=== PATIENT | male | born 1960 | race Caucasian/White ===

== ENCOUNTER 2020-03-07 16:47 | Observation (INO) ==
[2020-03-07 17:54] LABS: Bilirubin,Urine Negative (Negative); Blood,Urine Negative (Negative); Clarity,Urine Clear (Clear); Color,Urine Colorless (Yellow); Glucose,Urine (UA) >=1000 mg/dL (Normal); Ketones,Urine Negative (Negative); Leukocyte Esterase,Urine Negative (Negative); Nitrite,Urine Negative (Negative); Protein,Urine Negative (Neg-Trace); RBC,Urine 0-3 per hpf (0-3); Specific Gravity,Urine 1.027 (1.010-1.025); Squamous Epithelial Cell,Urine Few per hpf (None-Few); Urobilinogen,Urine Normal (Normal); WBC,Urine 0-3 per hpf (0-3)
[2020-03-07] MEDS ORDERED: Isovue-370 500 ML BOTTLE IVP ONE (17:55)
[2020-03-07 17:57] LABS: Basophils # 0.1 K/mcL (0.0-0.2); Basophils % 0.6 %; Eosinophils # 0.1 K/mcL (0.0-0.6); Hematocrit 47.8 % (37.5-50.1); Hemoglobin 15.6 g/dL (12.9-16.9); Immature Granulocytes % 0.1 % (0-4); Lymphocytes # 2.4 K/mcL (0.6-4.6); Lymphocytes % 31.1 %; Mean Corpuscular HGB Conc 32.6 g/dL (31.6-35.5); Mean Corpuscular Volume 91.9 fL (83.0-100.0); Monocytes # 0.5 K/mcL (0.0-1.3); Monocytes % 6.7 %; Neutrophils # 4.7 K/mcL (1.6-8.9); Platelet Count 212 K/mcL (140-400); Red Cell Distribution Width 13.6 % (11.5-14.5); Segmented Neutrophils % 60.5 %; White Blood Count 7.8 K/mcL (4.3-11.1)
[2020-03-07 18:09] LABS: BUN/Creatinine Ratio 20 (6-26); Blood Urea Nitrogen 17 mg/dL (8-23); Calcium 8.8 mg/dL (8.6-10.3); Carbon Dioxide 28 mEq/L (23-29); Chloride 101 mEq/L (98-107); Glucose 178 mg/dL (70-105); Osmolality,Calculated 288 (280-300); Potassium 3.8 mEq/L (3.5-5.1); Sodium 136 mEq/L (136-145); eGFR For African Americans > 60 (> 60); eGFR For Non-African Americans > 60 (> 60)
[2020-03-07 18:49] LABS: Troponin I < 0.03 ng/mL (< 0.04)
[2020-03-07] MEDS ORDERED: Acetaminophen 325 MG TABLET PO PRN (20:42)
[2020-03-07] MEDS ORDERED: Naloxone 0.4 MG/ML INJ IVP PRN (20:42)
[2020-03-07] MEDS ORDERED: Ondansetron 4 MG/2 ML VIAL IVP PRN (20:42)
[2020-03-07] MEDS ORDERED: Ringers Solution, Lactated 1,000 ML IVC SCH (20:45)
[2020-03-07] MEDS: Sucralfate 1 GM TABLET PO SCH (21:36)
[2020-03-07] MEDS: Ranolazine 500 MG TAB.ER.12H PO SCH (21:36)
[2020-03-08] MEDS ORDERED: *HR* Enoxaparin 40 MG/0.4 ML SYRINGE SQ SCH (06:00)
[2020-03-08 06:14] LABS: Prothrombin Time 11.6 Seconds (9.4-12.1)
[2020-03-08 06:16] LABS: Basophils # 0.1 K/mcL (0.0-0.2); Basophils % 0.9 %; Eosinophils # 0.2 K/mcL (0.0-0.6); Eosinophils % 2.3 %; Hematocrit 48.2 % (37.5-50.1); Hemoglobin 14.8 g/dL (12.9-16.9); Immature Granulocytes % 0.1 % (0-4); Lymphocytes # 3.1 K/mcL (0.6-4.6); Lymphocytes % 44.4 %; Mean Corpuscular HGB Conc 30.7 g/dL (31.6-35.5); Mean Corpuscular Hemoglobin 28.5 pg (28.0-33.3); Mean Corpuscular Volume 92.9 fL (83.0-100.0); Monocytes # 0.6 K/mcL (0.0-1.3); Platelet Count 208 K/mcL (140-400); Red Blood Count 5.19 M/mcL (4.19-5.50); Red Cell Distribution Width 13.8 % (11.5-14.5); Segmented Neutrophils % 43.3 %
[2020-03-08 06:41] LABS: Troponin I < 0.03 ng/mL (< 0.04)
[2020-03-08 07:37] LABS: Alanine Aminotransferase 15 Units/L (7-52); Albumin 3.7 g/dL (3.5-5.7); Albumin/Globulin Ratio 1.5 (1.1-2.2); Alkaline Phosphatase 54 Units/L (34-104); Aspartate Amino Transferase 13 Units/L (13-39); BUN/Creatinine Ratio 19 (6-26); Bilirubin,Total 0.4 mg/dL (0.3-1.0); Blood Urea Nitrogen 18 mg/dL (8-23); Calcium 8.5 mg/dL (8.6-10.3); Carbon Dioxide 31 mEq/L (23-29); Chloride 102 mEq/L (98-107); Globulin 2.5 g/dL (2.4-3.5); Glucose 109 mg/dL (70-105); Magnesium 2.3 mg/dL (1.6-2.6); Osmolality,Calculated 284 (280-300); Potassium 4.4 mEq/L (3.5-5.1); Sodium 136 mEq/L (136-145); Total Protein 6.2 g/dL (6.4-8.9); eGFR For African Americans > 60 (> 60); eGFR For Non-African Americans > 60 (> 60)
[2020-03-08] MEDS: Sucralfate 1 GM TABLET PO SCH ×2 (08:21→13:03)
[2020-03-08] MEDS: Ranolazine 500 MG TAB.ER.12H PO SCH (08:21)
[2020-03-08] MEDS ORDERED: Venlafaxine XR (24 HR) 37.5 MG CAP.ER.24H PO SCH (09:00)
[2020-03-08] MEDS ORDERED: *HR* LORazepam 1 MG TABLET PO SCH (09:00)
[2020-03-08] MEDS ORDERED: Aspirin Enteric Coated 81 MG Tablet PO SCH (09:00)
[2020-03-08] MEDS ORDERED: cephALEXin 500 MG CAPSULE PO SCH (09:45)
[2020-03-08 10:17] VITALS: BP 118/77
== END 2020-03-08 16:14 | disposition home or self-care (01) ==
LOC: EMEROOARM 16:47 → 3BNU 16:47 → SUATTDRO 19:51 → 3BNU 20:54
PROVIDERS: ADMIT Family Medicine; ATTEND Internal Medicine

== ENCOUNTER 2020-05-03 12:49 | Observation (INO) ==
[2020-05-03] MEDS ORDERED: Aspirin 81 MG TAB.CHEW PO ONE ×2 (12:58→13:15)
[2020-05-03] MEDS ORDERED: Aspirin 325 MG TABLET PO ONE (13:11)
[2020-05-03 13:23] LABS: Basophils # 0.1 K/mcL (0.0-0.2); Basophils % 0.8 %; Eosinophils # 0.1 K/mcL (0.0-0.6); Eosinophils % 1.7 %; Hematocrit 48.1 % (37.5-50.1); Immature Granulocytes % 0.3 % (0-4); Lymphocytes # 2.1 K/mcL (0.6-4.6); Lymphocytes % 35.6 %; Mean Corpuscular HGB Conc 31.2 g/dL (31.6-35.5); Mean Corpuscular Hemoglobin 28.9 pg (28.0-33.3); Mean Corpuscular Volume 92.7 fL (83.0-100.0); Mean Platelet Volume 10.3 fL (9.4-12.4); Monocytes # 0.5 K/mcL (0.0-1.3); Neutrophils # 3.2 K/mcL (1.6-8.9); Platelet Count 209 K/mcL (140-400); Red Blood Count 5.19 M/mcL (4.19-5.50); Red Cell Distribution Width 14.2 % (11.5-14.5); Segmented Neutrophils % 53.6 %
[2020-05-03] MEDS ORDERED: Nitroglycerin 0.4 MG TAB.SUBL SL PRN (13:30)
[2020-05-03 13:35] LABS: Prothrombin Time 11.4 Seconds (9.4-12.1)
[2020-05-03 13:38] LABS: Activated Partial Thrombo Time 29.5 Seconds (26.0-36.0)
[2020-05-03 14:10] LABS: BUN/Creatinine Ratio 15 (6-26); Blood Urea Nitrogen 15 mg/dL (8-23); Carbon Dioxide 25 mEq/L (23-29); Chloride 104 mEq/L (98-107); Glucose 238 mg/dL (70-105); Osmolality,Calculated 295 (280-300); Sodium 138 mEq/L (136-145); Troponin I < 0.03 ng/mL (< 0.04); eGFR For African Americans > 60 (> 60); eGFR For Non-African Americans > 60 (> 60)
[2020-05-03] MEDS ORDERED: Naloxone 0.4 MG/ML INJ IVP PRN (14:46)
[2020-05-03] MEDS ORDERED: D5% in Water 1,000 ML IVC PRN (16:05)
[2020-05-03] MEDS ORDERED: Dextrose Gel 15 GM/37.5 ML TUBE PO PRN ×2 (16:05)
[2020-05-03] MEDS ORDERED: *HR* Dextrose 50 % in Water (Vial) 50 ML VIAL IVP PRN (16:05)
[2020-05-03] MEDS: Sucralfate 1 GM TABLET PO SCH ×2 (18:03→21:30)
[2020-05-03] MEDS: Insulin LISPRO 300 UNITS/3 ML VIAL SUBQ SCH (18:07)
[2020-05-03] MEDS ORDERED: *HR* Promethazine 25 MG/ML VIAL IM ONE (19:19)
[2020-05-03] MEDS: Ranolazine 500 MG TAB.ER.12H PO SCH (19:57)
[2020-05-03] MEDS ORDERED: Insulin LISPRO 300 UNITS/3 ML VIAL SUBQ SCH (21:00)
[2020-05-03] MEDS ORDERED: GI Cocktail 40 ML EACH PO ONE (22:06)
[2020-05-03] MEDS ORDERED: Simethicone 80 MG TAB.CHEW PO PRN (22:06)
[2020-05-03] MEDS ORDERED: Sennosides/Docusate Sodium TABLET PO PRN (22:06)
[2020-05-04 02:42] LABS: BUN/Creatinine Ratio 20 (6-26); Basophils # 0.1 K/mcL (0.0-0.2); Basophils % 0.5 %; Blood Urea Nitrogen 15 mg/dL (8-23); Calcium 8.9 mg/dL (8.6-10.3); Carbon Dioxide 27 mEq/L (23-29); Chloride 103 mEq/L (98-107); Chol/HDL Ratio 4.8 (0-4.9); Cholesterol 168 mg/dL (< 200); Eosinophils # 0.2 K/mcL (0.0-0.6); Eosinophils % 1.7 %; Glucose 94 mg/dL (70-105); HDL Cholesterol 35 mg/dL (40-59); Hematocrit 48.6 % (37.5-50.1); Hemoglobin 15.6 g/dL (12.9-16.9); Immature Granulocytes % 0.3 % (0-4); LDL Cholesterol,Calculated 106 mg/dL (< 100); Lymphocytes # 3.2 K/mcL (0.6-4.6); Lymphocytes % 33.7 %; Mean Corpuscular HGB Conc 32.1 g/dL (31.6-35.5); Mean Corpuscular Hemoglobin 29.8 pg (28.0-33.3); Mean Corpuscular Volume 92.9 fL (83.0-100.0); Mean Platelet Volume 10.6 fL (9.4-12.4); Monocytes # 0.7 K/mcL (0.0-1.3); Monocytes % 6.9 %; Neutrophils # 5.4 K/mcL (1.6-8.9); Osmolality,Calculated 285 (280-300); Platelet Count 205 K/mcL (140-400); Potassium 3.7 mEq/L (3.5-5.1); Red Blood Count 5.23 M/mcL (4.19-5.50); Red Cell Distribution Width 13.9 % (11.5-14.5); Segmented Neutrophils % 56.9 %; Sodium 137 mEq/L (136-145); Triglycerides 135 mg/dL (< 150); eGFR For African Americans > 60 (> 60); eGFR For Non-African Americans > 60 (> 60)
[2020-05-04 02:45] LABS: White Blood Count 9.4 K/mcL (4.3-11.1)
[2020-05-04 03:16] LABS: Estimated Average Glucose 255 mg/dl; Hemoglobin A1C 10.5 %
[2020-05-04 06:16] VITALS: BP 103/64
[2020-05-04] MEDS: Insulin LISPRO 300 UNITS/3 ML VIAL SUBQ SCH ×2 (07:43→12:25)
[2020-05-04] MEDS: Ranolazine 500 MG TAB.ER.12H PO SCH (07:58)
[2020-05-04] MEDS: Sucralfate 1 GM TABLET PO SCH ×2 (07:58→12:28)
[2020-05-04] MEDS ORDERED: Regadenoson 0.4 MG/5 ML SYRINGE IVP ONE (08:35)
[2020-05-04] MEDS ORDERED: Venlafaxine XR (24 HR) 75 MG CAP.ER.24H PO SCH (09:00)
[2020-05-04] MEDS ORDERED: Aspirin Enteric Coated 81 MG Tablet PO SCH (09:00)
[2020-05-04] MEDS ORDERED: *HR* LORazepam 1 MG TABLET PO SCH (09:00)
[2020-05-04] MEDS ORDERED: Metoprolol XL (24 HR) Succ 25 MG TAB.ER.24H PO SCH (09:00)
[2020-05-04] MEDS ORDERED: Isosorbide MONOnitrate (24 HR) 30 MG TAB.ER.24H PO SCH (14:15)
== END 2020-05-04 16:18 | disposition home or self-care (01) ==
LOC: EMEROOARM 12:49 → 3BNU 12:49
PROVIDERS: ADMIT Internal Medicine; ATTEND Internal Medicine

== ENCOUNTER 2020-08-21 11:12 | Observation (INO) ==
[2020-08-21 11:50] LABS: Basophils # 0.1 K/mcL (0.0-0.2); Basophils % 0.8 %; Eosinophils # 0.1 K/mcL (0.0-0.6); Eosinophils % 1.4 %; Hemoglobin 15.6 g/dL (12.9-16.9); Immature Granulocytes % 0.2 % (0-4); Lymphocytes # 2.5 K/mcL (0.6-4.6); Lymphocytes % 28.4 %; Mean Corpuscular HGB Conc 31.8 g/dL (31.6-35.5); Mean Corpuscular Hemoglobin 30.1 pg (28.0-33.3); Mean Corpuscular Volume 94.4 fL (83.0-100.0); Mean Platelet Volume 10.3 fL (9.4-12.4); Monocytes # 0.7 K/mcL (0.0-1.3); Monocytes % 7.9 %; Neutrophils # 5.3 K/mcL (1.6-8.9); Platelet Count 218 K/mcL (140-400); Red Blood Count 5.19 M/mcL (4.19-5.50); Segmented Neutrophils % 61.3 %; White Blood Count 8.7 K/mcL (4.3-11.1)
[2020-08-21 11:59] LABS: INR 1.1; Prothrombin Time 12.3 Seconds (9.4-12.1)
[2020-08-21 12:02] LABS: Activated Partial Thrombo Time 29.7 Seconds (26.0-36.0)
[2020-08-21 12:04] LABS: BUN/Creatinine Ratio 17 (6-26); Blood Urea Nitrogen 16 mg/dL (8-23); Calcium 9.6 mg/dL (8.6-10.3); Carbon Dioxide 27 mEq/L (23-29); Chloride 105 mEq/L (98-107); Glucose 136 mg/dL (70-105); Osmolality,Calculated 289 (280-300); Potassium 4.2 mEq/L (3.5-5.1); Sodium 138 mEq/L (136-145); Troponin I < 0.03 ng/mL (< 0.04); eGFR For African Americans > 60 (> 60); eGFR For Non-African Americans > 60 (> 60)
[2020-08-21] MEDS ORDERED: Naloxone 0.4 MG/ML INJ IVP PRN (13:28)
[2020-08-21] MEDS ORDERED: Ondansetron 4 MG/2 ML VIAL IVP PRN (13:28)
[2020-08-21] MEDS ORDERED: Dextrose Gel 15 GM/37.5 ML TUBE PO PRN ×2 (13:39)
[2020-08-21] MEDS ORDERED: D5% in Water 1,000 ML IVC PRN (13:39)
[2020-08-21] MEDS ORDERED: *HR* Dextrose 50 % in Water (Vial) 50 ML VIAL IVP PRN (13:39)
[2020-08-21] MEDS ORDERED: Nitroglycerin 0.4 MG TAB.SUBL SL PRN (14:30)
[2020-08-21] MEDS: Insulin LISPRO 300 UNITS/3 ML VIAL SUBQ SCH (17:32)
[2020-08-21] MEDS: Insulin DETEMIR 100 UNIT/ML X5UNITS SUBQ SCH (20:36)
[2020-08-21] MEDS: Ranolazine 500 MG TAB.ER.12H PO SCH (20:36)
[2020-08-21] MEDS: Gabapentin 300 MG CAPSULE PO SCH (20:36)
[2020-08-22 05:42] LABS: BUN/Creatinine Ratio 17 (6-26); Blood Urea Nitrogen 16 mg/dL (8-23); Calcium 8.6 mg/dL (8.6-10.3); Carbon Dioxide 28 mEq/L (23-29); Chloride 105 mEq/L (98-107); Glucose 81 mg/dL (70-105); Osmolality,Calculated 288 (280-300); Potassium 3.7 mEq/L (3.5-5.1); Sodium 139 mEq/L (136-145); eGFR For African Americans > 60 (> 60); eGFR For Non-African Americans > 60 (> 60)
[2020-08-22] MEDS: Insulin LISPRO 300 UNITS/3 ML VIAL SUBQ SCH ×3 (08:42→16:28)
[2020-08-22] MEDS: Ranolazine 500 MG TAB.ER.12H PO SCH ×2 (08:48→21:46)
[2020-08-22] MEDS: Gabapentin 300 MG CAPSULE PO SCH ×2 (08:48→21:46)
[2020-08-22] MEDS: Metoprolol XL (24 HR) Succ 25 MG TAB.ER.24H PO SCH (08:49)
[2020-08-22] MEDS: Finasteride 5 MG TABLET PO SCH (08:49)
[2020-08-22] MEDS: Isosorbide MONOnitrate (24 HR) 30 MG TAB.ER.24H PO SCH (08:49)
[2020-08-22] MEDS: Aspirin Enteric Coated 81 MG Tablet PO SCH (08:49)
[2020-08-22] MEDS ORDERED: GI Cocktail 40 ML EACH PO ONE (10:16)
[2020-08-22] MEDS ORDERED: *HR* LORazepam 2 MG/ML VIAL IVP ONE (10:23)
[2020-08-22] MEDS ORDERED: Perflutren Lipid Microsphere 1.3 ML in 0.9 % Sodium Chloride 8.7 ML IVP PRN (11:01)
[2020-08-22] MEDS: *HR* Heparin 5,000 UNIT/ML VIAL SQ SCH (16:39)
[2020-08-22] MEDS ORDERED: Acetaminophen 325 MG TABLET PO PRN (21:49)
[2020-08-22] MEDS: Insulin DETEMIR 100 UNIT/ML X5UNITS SUBQ SCH (21:53)
[2020-08-23] MEDS: *HR* Heparin 5,000 UNIT/ML VIAL SQ SCH (07:06)
[2020-08-23 07:07] VITALS: BP 126/78
[2020-08-23] MEDS: Insulin LISPRO 300 UNITS/3 ML VIAL SUBQ SCH ×2 (08:10→11:15)
[2020-08-23] MEDS: Ranolazine 500 MG TAB.ER.12H PO SCH (08:17)
[2020-08-23] MEDS: Finasteride 5 MG TABLET PO SCH (08:17)
[2020-08-23] MEDS: Metoprolol XL (24 HR) Succ 25 MG TAB.ER.24H PO SCH (08:17)
[2020-08-23] MEDS: Aspirin Enteric Coated 81 MG Tablet PO SCH (08:18)
[2020-08-23] MEDS: Isosorbide MONOnitrate (24 HR) 30 MG TAB.ER.24H PO SCH (08:18)
[2020-08-23] MEDS: Gabapentin 300 MG CAPSULE PO SCH (08:18)
[2020-08-23] MEDS ORDERED: Venlafaxine XR (24 HR) 75 MG CAP.ER.24H PO SCH (09:00)
== END 2020-08-23 14:26 | disposition home or self-care (01) ==
LOC: 3NENU 11:12 → EMEROOARM 11:12 → SUATTDRO 15:44 → 3NENU 17:03
PROVIDERS: ADMIT Internal Medicine; ATTEND Internal Medicine

== ENCOUNTER 2021-04-30 17:20 | Observation (INO) ==
[2021-04-30] MEDS ORDERED: GI Cocktail 40 ML EACH PO ONE (20:31)
[2021-04-30 20:42] LABS: Basophils # 0.1 K/mcL (0.0-0.2); Basophils % 0.7 %; Eosinophils # 0.2 K/mcL (0.0-0.6); Hemoglobin 16.2 g/dL (12.9-16.9); Immature Granulocytes % 0.2 % (0-4); Lymphocytes # 2.5 K/mcL (0.6-4.6); Lymphocytes % 27.9 %; Mean Corpuscular HGB Conc 32.4 g/dL (31.6-35.5); Mean Corpuscular Hemoglobin 30.5 pg (28.0-33.3); Mean Platelet Volume 10.3 fL (9.4-12.4); Monocytes # 0.7 K/mcL (0.0-1.3); Monocytes % 7.5 %; Neutrophils # 5.5 K/mcL (1.6-8.9); Platelet Count 200 K/mcL (140-400); Red Blood Count 5.32 M/mcL (4.19-5.50); Red Cell Distribution Width 13.9 % (11.5-14.5); Segmented Neutrophils % 61.7 %; White Blood Count 8.9 K/mcL (4.3-11.1)
[2021-04-30 21:02] LABS: Alanine Aminotransferase 20 Units/L (7-52); Albumin 4.1 g/dL (3.5-5.7); Albumin/Globulin Ratio 1.4 (1.1-2.2); Alkaline Phosphatase 57 Units/L (34-104); Aspartate Amino Transferase 13 Units/L (13-39); BUN/Creatinine Ratio 20 (6-26); Bilirubin,Direct 0.1 mg/dL (0.0-0.2); Bilirubin,Indirect 0.3 mg/dL (0.0-1.0); Bilirubin,Total 0.4 mg/dL (0.3-1.0); Blood Urea Nitrogen 17 mg/dL (8-23); Calcium 9.3 mg/dL (8.6-10.3); Carbon Dioxide 27 mEq/L (23-29); Chloride 103 mEq/L (98-107); Globulin 2.9 g/dL (2.4-3.5); Glucose 198 mg/dL (70-105); Lipase 17 Units/L (11-82); Osmolality,Calculated 289 (280-300); Potassium 3.8 mEq/L (3.5-5.1); Sodium 136 mEq/L (136-145); eGFR For African Americans > 60 (> 60); eGFR For Non-African Americans > 60 (> 60)
[2021-04-30 21:08] LABS: Troponin I < 0.03 ng/mL (< 0.04)
[2021-04-30] MEDS ORDERED: Melatonin 3 MG TABLET PO PRN (23:10)
[2021-04-30] MEDS ORDERED: Naloxone 0.4 MG/ML INJ IVP PRN (23:10)
[2021-04-30] MEDS ORDERED: Ondansetron 4 MG/2 ML VIAL IVP PRN (23:10)
[2021-04-30] MEDS ORDERED: Acetaminophen 325 MG TABLET PO PRN (23:10)
[2021-04-30] MEDS ORDERED: *HR* HYDROcodone/Acet 5/325 mg TABLET PO PRN (23:10)
[2021-04-30] MEDS ORDERED: *HR* LORazepam 0.5 MG TABLET PO STA (23:26)
[2021-04-30] MEDS ORDERED: *HR* LORazepam 0.5 MG TABLET PO PRN (23:26)
[2021-04-30] MEDS ORDERED: Morphine Sulfate 2 MG/ML SYRINGE IVP ONE (23:26)
[2021-04-30] MEDS ORDERED: Ipratropium/Albuterol Neb 3 ML IH PRN (23:38)
[2021-04-30] MEDS ORDERED: Nicotine 2 MG GUM BC ONE (23:39)
[2021-05-01] MEDS: Ondansetron ODT 4 MG TAB.RAPDIS SL SCH ×4 (00:12→23:27)
[2021-05-01 00:33] LABS: Basophils # 0.1 K/mcL (0.0-0.2); Basophils % 0.8 %; Eosinophils # 0.2 K/mcL (0.0-0.6); Eosinophils % 2.5 %; Hematocrit 48.2 % (37.5-50.1); Hemoglobin 15.3 g/dL (12.9-16.9); Immature Granulocytes % 0.2 % (0-4); Lymphocytes # 3.5 K/mcL (0.6-4.6); Lymphocytes % 37.7 %; Mean Corpuscular HGB Conc 31.7 g/dL (31.6-35.5); Mean Corpuscular Hemoglobin 30.2 pg (28.0-33.3); Mean Corpuscular Volume 95.1 fL (83.0-100.0); Mean Platelet Volume 10.4 fL (9.4-12.4); Monocytes # 0.7 K/mcL (0.0-1.3); Monocytes % 7.6 %; Neutrophils # 4.8 K/mcL (1.6-8.9); Platelet Count 197 K/mcL (140-400); Red Blood Count 5.07 M/mcL (4.19-5.50); Red Cell Distribution Width 13.9 % (11.5-14.5); Segmented Neutrophils % 51.2 %; White Blood Count 9.3 K/mcL (4.3-11.1)
[2021-05-01 00:42] LABS: INR 1.1; Prothrombin Time 12.3 Seconds (9.4-12.1)
[2021-05-01 00:53] LABS: Alanine Aminotransferase 18 Units/L (7-52); Albumin 3.9 g/dL (3.5-5.7); Albumin/Globulin Ratio 1.4 (1.1-2.2); Alkaline Phosphatase 49 Units/L (34-104); Aspartate Amino Transferase 12 Units/L (13-39); BUN/Creatinine Ratio 20 (6-26); Bilirubin,Total 0.5 mg/dL (0.3-1.0); Blood Urea Nitrogen 16 mg/dL (8-23); Calcium 8.9 mg/dL (8.6-10.3); Carbon Dioxide 28 mEq/L (23-29); Chloride 102 mEq/L (98-107); Chol/HDL Ratio 3.3 (0-4.9); Cholesterol 133 mg/dL (< 200); Globulin 2.8 g/dL (2.4-3.5); Glucose 166 mg/dL (70-105); HDL Cholesterol 40 mg/dL (40-59); LDL Cholesterol,Calculated 77 mg/dL (< 100); Magnesium 1.9 mg/dL (1.6-2.6); Osmolality,Calculated 289 (280-300); Phosphorous 3.2 mg/dL (2.7-4.5); Potassium 3.5 mEq/L (3.5-5.1); Sodium 137 mEq/L (136-145); Total Protein 6.7 g/dL (6.4-8.9); Triglycerides 80 mg/dL (< 150); eGFR For African Americans > 60 (> 60); eGFR For Non-African Americans > 60 (> 60)
[2021-05-01] MEDS: Ipratropium/Albuterol Neb 3 ML IH SCH ×4 (03:54→20:20)
[2021-05-01] MEDS ORDERED: *HR* Dextrose 50 % in Water (Syg) 50 ML SYRINGE IVP PRN (05:42)
[2021-05-01] MEDS ORDERED: D5% in Water 1,000 ML IVC PRN (05:42)
[2021-05-01] MEDS ORDERED: Dextrose Gel 15 GM/37.5 ML TUBE PO PRN ×2 (05:42)
[2021-05-01] MEDS ORDERED: Regadenoson 0.4 MG/5 ML SYRINGE IVP ONE (06:19)
[2021-05-01] MEDS: Budesonide/Formoterol 160/4.5 1 PUFF INH IH SCH ×2 (08:19→20:20)
[2021-05-01] MEDS ORDERED: Ranolazine 500 MG TAB.ER.12H PO SCH (09:00)
[2021-05-01] MEDS ORDERED: Isosorbide MONOnitrate (24 HR) 30 MG TAB.ER.24H PO SCH (12:00)
[2021-05-01] MEDS: Insulin LISPRO 300 UNITS/3 ML VIAL SUBQ SCH ×3 (12:10→17:57)
[2021-05-01] MEDS: Aspirin Enteric Coated 81 MG Tablet PO SCH (12:13)
[2021-05-01] MEDS: Metoprolol XL (24 HR) Succ 25 MG TAB.ER.24H PO SCH (12:14)
[2021-05-01] MEDS: Venlafaxine XR (24 HR) 75 MG CAP.ER.24H PO SCH (12:15)
[2021-05-01] MEDS: Gabapentin 300 MG CAPSULE PO SCH ×2 (12:15→20:40)
[2021-05-01] MEDS: Multivit/Ca/Min/Fe/FA 1 TAB TABLET PO SCH (12:16)
[2021-05-01] MEDS: Finasteride 5 MG TABLET PO SCH (12:16)
[2021-05-01] MEDS: *HR* Enoxaparin 40 MG/0.4 ML SYRINGE SQ SCH ×2 (12:17→20:40)
[2021-05-01] MEDS: Chlorhexidine Rinse 15 ML MOUTHWASH MM SCH ×2 (12:17→20:41)
[2021-05-01] MEDS: Ranolazine 500 MG TAB.ER.12H PO SCH (20:41)
[2021-05-01] MEDS ORDERED: Insulin LISPRO 300 UNITS/3 ML VIAL SUBQ SCH (21:00)
[2021-05-01] MEDS ORDERED: Insulin DETEMIR 100 UNIT/ML X5UNITS SUBQ SCH (21:00)
[2021-05-02] MEDS: Ipratropium/Albuterol Neb 3 ML IH SCH (03:45)
[2021-05-02 04:22] LABS: Estimated Average Glucose 226 mg/dl; Hemoglobin A1C 9.5 %
[2021-05-02 07:34] VITALS: BP 100/60; PULSE 69; TEMP 97.6; O2SAT 93
[2021-05-02] MEDS: Aspirin Enteric Coated 81 MG Tablet PO SCH (08:46)
[2021-05-02] MEDS: Multivit/Ca/Min/Fe/FA 1 TAB TABLET PO SCH (08:46)
[2021-05-02] MEDS: Ondansetron ODT 4 MG TAB.RAPDIS SL SCH (08:46)
[2021-05-02] MEDS: Venlafaxine XR (24 HR) 75 MG CAP.ER.24H PO SCH (08:46)
[2021-05-02] MEDS: Metoprolol XL (24 HR) Succ 25 MG TAB.ER.24H PO SCH (08:46)
[2021-05-02] MEDS: Finasteride 5 MG TABLET PO SCH (08:46)
[2021-05-02] MEDS: Gabapentin 300 MG CAPSULE PO SCH (08:46)
[2021-05-02] MEDS: Ranolazine 500 MG TAB.ER.12H PO SCH (08:46)
[2021-05-02] MEDS: Insulin LISPRO 300 UNITS/3 ML VIAL SUBQ SCH (08:47)
[2021-05-02] MEDS: Chlorhexidine Rinse 15 ML MOUTHWASH MM SCH (08:47)
[2021-05-02] MEDS: *HR* Enoxaparin 40 MG/0.4 ML SYRINGE SQ SCH (08:47)
[2021-05-02] MEDS ORDERED: Isosorbide MONOnitrate (24 HR) 60 MG TAB.ER.24H PO SCH (09:00)
[2021-05-02] MEDS ORDERED: Isosorbide MONOnitrate (24 HR) 30 MG TAB.ER.24H PO ONE (12:36)
== END 2021-05-02 11:54 | disposition home or self-care (01) ==
LOC: EMEROOARM 17:20 → 3BNU 17:20 → SUATTDRO 23:00 → 3BNU 23:34
PROVIDERS: ADMIT Internal Medicine; ATTEND Registered Nurse